=== PATIENT | female | born 1930 | race Caucasian/White ===

== ENCOUNTER 2021-04-30 21:37 | Emergency (ER) | payer MEDICARE, BC ==
[~2021-04-30] VITALS: Ht 162.6 cm; Wt 56.7 kg
--- NOTE | 2021-04-30 22:28 | NUR ---
DR. HOWARD AT BEDSIDE, MSE IN PROGRESS.
--- NOTE | 2021-04-30 22:41 | NUR ---
XRAY AT BEDSIDE.
[2021-04-30] MEDS ORDERED: IBUPROFEN 400 MG TABLET PO ONE (22:45)
[2021-04-30] MEDS ORDERED: IBUPROFEN 400 MG TABLET ONE (22:47)
[2021-04-30] MEDS ORDERED: IBUP-1953 PO (23:58)
[2021-04-30] MEDS ORDERED: ACET-2605 PO (23:58)
--- NOTE | 2021-05-01 00:08 | NUR ---
Patient discharged to home in stable condition. Written and verbal after care instructions given. Patient verbalizes understanding of instructions. Stressed follow up or return to ER for worsening s/s. Steady gait, denies any pain/discomfort upon discharge. Sugar tong and arm sling placed on LT arm. Accompanied by son.
[2021-05-01 00:09] VITALS: BP 142/84
== END 2021-05-01 00:10 | disposition home or self-care (01) ==
LOC: ER 21:41
DX: S52.532A Colles' fracture of left radius, initial encounter for closed fracture (principal); S52.612A Displaced fracture of left ulna styloid process, initial encounter for closed fracture; Z88.5 Allergy status to narcotic agent; W01.0XXA Fall on same level from slipping, tripping and stumbling without subsequent striking against object, initial encounter; Y93.89 Activity, other specified; Y92.89 Other specified places as the place of occurrence of the external cause; Y99.8 Other external cause status
CPT/HCPCS: 73110; A4663